=== PATIENT | female | born 1985 | race Caucasian/White ===

== ENCOUNTER 2022-12-26 21:37 | Emergency (ER) | payer OTHER ==
[~2022-12-26] VITALS: Ht 162.6 cm; Wt 81.6 kg
[2022-12-26 22:00] VITALS: BP 113/74; PULSE 85; RESP 17; TEMP 98; O2SAT 99
--- NOTE | 2022-12-26 22:23 | NUR ---
PT TAKEN TO BED 11
--- NOTE | 2022-12-26 22:24 | NUR ---
Dr. Cuenca examining patient.
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
--- NOTE | 2022-12-26 22:45 | NUR ---
Urine sample obtained and tested for test with negative result.
[2022-12-26] MEDS: KETOROLAC 15 MG/ML VIAL IM ONE (22:50)
[2022-12-26] MEDS: ACETAMINOPHEN 325 MG TAB PO ONE (22:51)
[2022-12-26] MEDS: methocarbamoL 500 MG TAB PO STA (22:51)
[2022-12-26] MEDS ORDERED: METH-1681 PO (23:47)
[2022-12-26] MEDS ORDERED: IBUP-2213 PO (23:47)
[2022-12-26 23:58] VITALS: BP 97/67; PULSE 67; RESP 19; TEMP 98; O2SAT 99
--- NOTE | 2022-12-26 23:58 | NUR ---
Patient discharged with v/s stable. Written and verbal after care instructions given and explained. Patient alert, oriented and verbalized understanding of instructions. Ambulatory with steady gait. All questions addressed prior to discharge. ID band removed. Patient advised to follow up with PMD. Rx of Ibuprofen and Robaxin given. Patient educated on indication of medication including possible reaction and side effects. Opportunity to ask questions provided and answered.
== END 2022-12-26 23:58 | disposition home or self-care (01) ==
LOC: MED 21:37
DX: S29.012A Strain of muscle and tendon of back wall of thorax, initial encounter (principal); S16.1XXA Strain of muscle, fascia and tendon at neck level, initial encounter; Z79.899 Other long term (current) drug therapy; Z79.1 Long term (current) use of non-steroidal anti-inflammatories (NSAID); V89.2XXA Person injured in unspecified motor-vehicle accident, traffic, initial encounter; Y93.89 Activity, other specified; Y92.410 Unspecified street and highway as the place of occurrence of the external cause; Y99.8 Other external cause status
CPT/HCPCS: 81025; 96372; 99283; J1885